=== PATIENT | female | born 1970 | race Caucasian/White ===

== ENCOUNTER → 2020-09-24 15:15 | Outpatient (BNVA) | payer MEDICARE, MEDICAID, SELFPAY | PROVIDERS: PCP Nurse Practitioner Family; Referring Provider Nurse Practitioner Family; Visit Provider Nurse Practitioner | DX: R41.3 Other amnesia (principal) | CPT/HCPCS: 99204 ==

== ENCOUNTER → 2021-01-20 08:55 | Outpatient (BNVA) | payer MEDICARE, MEDICAID, SELFPAY | PROVIDERS: PCP Nurse Practitioner Family; Referring Provider Specialist; Visit Provider Specialist | DX: R41.3 Other amnesia (principal); R68.89 Other general symptoms and signs | CPT/HCPCS: 95816 ==